=== PATIENT | male | born 1960 | race Hispanic/Latino ===

== ENCOUNTER 2018-12-14 16:19 | Observation (INO) | payer BC ==
[~2018-12-14] VITALS: Ht 162.6 cm; Wt 66.7 kg
[2018-12-14] MEDS ORDERED: ZOSYN 3.375GM+NS 50ML 50 ML IV ONE (17:03)
[2018-12-14 17:18] LABS: BASOPHILS % (AUTO) 0.7 % (0.0-5.0); EOSINOPHILS % (AUTO) 0.5 % (0.0-8.0); HEMATOCRIT 42.3 % (42-54); LYMPHOCYTES % (AUTO) 18.2 % (21.0-51.0); MEAN CORPUSCULAR HEMOGLOBIN 31.9 pg (27.0-33.0); MEAN CORPUSCULAR HGB CONC 33.9 g/dL (32.0-36.0); MEAN CORPUSCULAR VOLUME 94.1 fL (79-99); MONOCYTES % (AUTO) 8.5 % (3.0-13.0); NEUTROPHILS % (AUTO) 72.1 % (40.0-77.0); PLATELET COUNT (AUTO) 270 K/uL (130-400); RED BLOOD CELL COUNT(AUTO) 4.49 MIL/uL (4.50-6.20); WHITE BLOOD COUNT (AUTO) 9.1 K/uL (4.8-10.8)
[2018-12-14 17:33] LABS: CREATININE 0.9 mg/dL (0.5-1.5); POTASSIUM 3.6 mmol/L (3.5-5.1)
[2018-12-14 17:38] LABS: ALBUMIN 4.2 g/dL (3.5-5.0); BILIRUBIN,TOTAL 0.3 mg/dL (0.2-1.0); TOTAL PROTEIN, SERUM 8.1 g/dL (6.0-8.3)
[2018-12-14 17:55] LABS: INR 0.93 (0.85-1.15); PARTIAL THROMBOPLASTIN TIME 28.8 SEC (26.3-35.5); PROTHROMBIN TIME 9.8 SEC (9.6-11.6)
[2018-12-14 18:26] LABS: APPEARANCE,URINE Clear (CLEAR); BILIRUBIN,URINE Negative (NEGATIVE); COLOR,URINE Yellow (YELLOW); GLUCOSE, URINE (UA) Negative (NEGATIVE); KETONES,URINE Negative (NEGATIVE); LEUKOCYTE ESTERASE ,URINE Negative (NEGATIVE); NITRATE,URINE Negative (NEGATIVE); OCCULT BLOOD,URINE Negative (NEGATIVE); PROTEIN,URINE Negative (NEGATIVE)
[2018-12-14] MEDS ORDERED: MORPHINE SULFATE 2 MG/ML 1ML SYG IV PRN (18:45)
[2018-12-14] MEDS ORDERED: CLINDAMYCIN 600 MG/D5% WATER 50 ML IV SCH (18:45)
[2018-12-14] MEDS ORDERED: ACETAMINOPHEN 325 MG TAB PO PRN (18:45)
[2018-12-14] MEDS ORDERED: ONDANSETRON HCL 4 MG/2 ML VIAL IVP PRN (19:30)
[2018-12-14] MEDS: FAMOTIDINE 20MG TAB 20 MG TAB PO SCH (21:00)
[2018-12-14] MEDS ORDERED: FAMOTIDINE 20MG TAB 20 MG TAB ONE (21:16)
[2018-12-14] MEDS ORDERED: CLINDAMYCIN 600 MG/D5% WATER 50 ML IV ONE (21:17)
[2018-12-15] VITALS: BP 107/65
[2018-12-15] MEDS: HYDROCODONE/ACETAMINOPHEN 5/325 MG TAB PO PRN ×2 (00:20→22:26)
[2018-12-15] MEDS ORDERED: DOXY100C2 PO (01:28)
[2018-12-15] MEDS ORDERED: ATOR10 PO (01:28)
[2018-12-15] MEDS ORDERED: LOSA50TA64 PO (01:28)
[2018-12-15 03:20] VITALS: BP 107/59
[2018-12-15] MEDS ORDERED: CLINDAMYCIN 600 MG/D5% WATER 50 ML IV SCH (05:00)
[2018-12-15 05:18] LABS: BASOPHILS % (AUTO) 0.5 % (0.0-5.0); HEMATOCRIT 39.1 % (42-54); MEAN CORPUSCULAR HEMOGLOBIN 32.4 pg (27.0-33.0); MEAN CORPUSCULAR HGB CONC 34.1 g/dL (32.0-36.0); MEAN CORPUSCULAR VOLUME 94.8 fL (79-99); MONOCYTES % (AUTO) 8.4 % (3.0-13.0); NEUTROPHILS % (AUTO) 63.1 % (40.0-77.0); NUCLEATED RED BLOOD CELLS 0.1 % (0.0-0.19); PLATELET COUNT (AUTO) 221 K/uL (130-400); RED BLOOD CELL COUNT(AUTO) 4.13 MIL/uL (4.50-6.20); RED CELL DISTRIBUTION WIDTH 13.3 % (11.0-15.5); WHITE BLOOD COUNT (AUTO) 7.4 K/uL (4.8-10.8)
[2018-12-15 05:36] LABS: CREATININE 0.8 mg/dL (0.5-1.5); POTASSIUM 3.6 mmol/L (3.5-5.1)
[2018-12-15] MEDS: FAMOTIDINE 20MG TAB 20 MG TAB PO SCH ×2 (09:34→22:22)
[2018-12-15] MEDS: ENOXAPARIN SODIUM 40 MG/0.4 ML SYRINGE SQ SCH (09:35)
[2018-12-15] MEDS: CLINDAMYCIN 600 MG/D5% WATER 50 ML IV SCH ×2 (09:35→17:00)
[2018-12-15 09:38] VITALS: BP 118/65
[2018-12-15 12:03] VITALS: BP 133/76
[2018-12-15 16:16] VITALS: BP 135/75
[2018-12-15 20:00] VITALS: BP 118/70
[2018-12-16] VITALS: BP 115/71
[2018-12-16] MEDS: CLINDAMYCIN 600 MG/D5% WATER 50 ML IV SCH ×2 (02:44→09:39)
[2018-12-16 04:24] VITALS: BP 116/60
[2018-12-16 05:25] LABS: BASOPHILS % (AUTO) 0.5 % (0.0-5.0); EOSINOPHILS % (AUTO) 1.5 % (0.0-8.0); HEMATOCRIT 40.2 % (42-54); LYMPHOCYTES % (AUTO) 35.1 % (21.0-51.0); MEAN CORPUSCULAR HEMOGLOBIN 31.3 pg (27.0-33.0); MEAN CORPUSCULAR HGB CONC 33.5 g/dL (32.0-36.0); MEAN CORPUSCULAR VOLUME 93.3 fL (79-99); MONOCYTES % (AUTO) 9.2 % (3.0-13.0); NEUTROPHILS % (AUTO) 53.7 % (40.0-77.0); PLATELET COUNT (AUTO) 264 K/uL (130-400); RED BLOOD CELL COUNT(AUTO) 4.31 MIL/uL (4.50-6.20); RED CELL DISTRIBUTION WIDTH 12.9 % (11.0-15.5); WHITE BLOOD COUNT (AUTO) 6.4 K/uL (4.8-10.8)
[2018-12-16 05:38] LABS: CREATININE 0.8 mg/dL (0.5-1.5); POTASSIUM 4.3 mmol/L (3.5-5.1)
[2018-12-16 08:07] VITALS: BP 113/60
[2018-12-16] MEDS: FAMOTIDINE 20MG TAB 20 MG TAB PO SCH (09:39)
[2018-12-16] MEDS: ENOXAPARIN SODIUM 40 MG/0.4 ML SYRINGE SQ SCH (09:40)
[2018-12-16] MEDS ORDERED: CLIN300C9 PO (11:08)
[2018-12-16 11:46] VITALS: BP 146/90
--- NOTE | 2018-12-16 14:40 | NUR ---
[facility] CONSULT PATIENT ASSESSED ORDERED: PATIENT PRESENTS WITH CELLULITIS TO RT FOOT, NO OPEN WOUND PRESENT; PATIENT WILL CONTINUE ON ANTIBIOTICS; NO [facility] RECOMMENDATIONS SUBMITTED AT THIS TIME. Addendum: 12/16/18 at 1443 by DILLON CHAPMAN LVN Amended: Links added.
[2018-12-16 15:48] VITALS: BP 127/71
--- NOTE | 2018-12-16 17:10 | NUR ---
PATIENT DISCHARGE PATIENT DISCHARGED, IV DISCONTINUED, CATHLON INTACT, BLEEDING CONTROLLED. PATIENT TOLERATED WITHOUT INCIDENT.
== END 2018-12-16 18:00 | disposition home or self-care (01) ==
LOC: EDH 16:19 → EDHIP 18:42 → 3DH 22:52
PROVIDERS: ADMIT Internal Medicine; ATTEND Internal Medicine
DX: L03.115 Cellulitis of right lower limb (principal); E78.5 Hyperlipidemia, unspecified; I10 Essential (primary) hypertension; Z88.8 Allergy status to other drugs, medicaments and biological substances; Z79.899 Other long term (current) drug therapy; Z79.01 Long term (current) use of anticoagulants
CPT/HCPCS: 36415 ×3; 71045; 73630; 73718; 80048 ×2; 80053; 81003; 85025 ×3; 85610; 85730; 87040; 93005; 96365; 96366; 96372 ×2; 99283; G0378 ×47; J1650 ×2; J2543; J3490 ×5